=== PATIENT | female | born 1970 | race Caucasian/White ===

== ENCOUNTER → 2017-04-06 | Outpatient (CLI) | payer BC ==
--- NOTE | 2017-04-06 17:02 | RAD ---
EXAM: Pelvic sonogram. HISTORY: Metrorrhagia. TECHNIQUE: Transabdominal and transvaginal sonographic imaging of the pelvis was performed. COMPARISON: None. FINDINGS: The uterus measures 10.7 x 0.9 x 4.3 cm transabdominally and 10.1 x 7.1 x 4.9 cm transvaginally. There is a small nabothian cyst within the cervix. The endometrial stripe is thickened, measuring 1.4 cm. There is suggestion of blood flow within the endometrium, without a clear lesion such as a polyp or submucosal fibroid. The right ovary measures 1.8 x 2.0 x 1.4 cm. The left ovary measures 2.0 x 2.3 x 1.6 cm. There is normal blood flow within both ovaries. There is a right ovarian or para ovarian cyst with thin internal septation or 2 adjacent cysts measuring 5.5 cm in conglomerate. There is no free fluid. IMPRESSION: 1. 5.5 cm right ovarian or para ovarian cyst within internal septation or 2 adjacent cysts. 2. Thickened endometrium, measuring 1.4 cm. There is suggestion of blood flow within the endometrium, without a clear etiology such as a fibroid or polyp. Follow-up can be performed at a different phase of the menstrual cycle if there is concern for endometrial pathologically.
== END | disposition home or self-care (01) ==
LOC: US 14:52
PROVIDERS: ATTEND Obstetrics & Gynecology
DX: N83.201 Unspecified ovarian cyst, right side (principal); N88.8 Other specified noninflammatory disorders of cervix uteri; R93.8 Abnormal findings on diagnostic imaging of other specified body structures
CPT/HCPCS: 76830; 76856

== ENCOUNTER → 2018-01-24 | Outpatient (CLI) | payer OTHER ==
--- NOTE | 2018-01-24 17:04 | RAD ---
INDICATION: Dystrophic uterine bleeding. TECHNIQUE: Transabdominal and transvaginal imaging is provided. Comparison is from April 06, 2017. FINDINGS: Uterus measures 9.3 x 7.3 x 4.6 cm. Endometrial stripe measures 10 mm. There is a questionable polyp on transvaginal imaging noted, with some color flow. Abnormality in the endometrial stripe was questioned on prior exam as well. On the current study, margins are not well-defined, difficult to provide a measurement of the size of this potential lesion. Right ovary is normal in appearance with color flow and waveform documented. There is a small cyst. Left ovary is also normal appearance with color flow and waveform documented. IMPRESSION: 1. Questionable polyp or mass within the endometrial canal, with some color flow. Similar appearance was noted on prior study. Recommend gynecologic consult. Electronically signed by: Braxton Mendenhall MD (01/24/2018 5:01 PM) [facility]
== END | disposition home or self-care (01) ==
LOC: US 14:52
PROVIDERS: ATTEND Obstetrics & Gynecology
DX: N93.8 Other specified abnormal uterine and vaginal bleeding (principal)
CPT/HCPCS: 76830; 76856